=== PATIENT | female | born 2000 | race Caucasian/White ===

== ENCOUNTER → 2020-11-25 | Outpatient (CLI) | payer BC | LOC: LAB 15:47 → LAB SHORT 15:47 | DX: N39.0 Urinary tract infection, site not specified (principal) | CPT/HCPCS: 87086 ==

== ENCOUNTER 2023-02-11 11:17 | Emergency (ER) | payer OTHER ==
[~2023-02-11] VITALS: Ht 162.6 cm; Wt 104.3 kg
[2023-02-11 11:31] VITALS: BP 145/77
[2023-02-11] MEDS ORDERED: CYMBALTA30 M2 PO (12:03)
== END 2023-02-11 12:45 | disposition home or self-care (01) ==
LOC: ER 11:17
DX: M25.461 Effusion, right knee (principal)
CPT/HCPCS: 99283-25; A9270